=== PATIENT | male | born 1965 | race Caucasian/White ===

== ENCOUNTER → 2024-12-18 11:47 | Outpatient (REF) | payer OTHER, SELFPAY | LOC: RAD 11:47 | PROVIDERS: ATTENDING PHYSICIAN Physician Assistant Medical | DX: M54.42 Lumbago with sciatica, left side (principal) | CPT/HCPCS: 72110 ==

== ENCOUNTER → 2024-12-23 06:56 | Outpatient (REF) | payer OTHER, SELFPAY | LOC: MRI 3T 06:56 | PROVIDERS: ATTENDING PHYSICIAN Physician Assistant Medical; FAMILY PHYSICIAN Family Medicine | DX: G89.29 Other chronic pain (principal); M54.42 Lumbago with sciatica, left side | CPT/HCPCS: 72148 ==

== ENCOUNTER → 2025-01-01 13:44 | Outpatient (REF) | payer OTHER, SELFPAY | LOC: DHSLP 13:44 | PROVIDERS: ATTENDING PHYSICIAN Family Medicine | DX: G47.33 Obstructive sleep apnea (adult) (pediatric) (principal); R09.02 Hypoxemia | CPT/HCPCS: 95800 ==

== ENCOUNTER → 2025-01-18 14:09 | Outpatient (REF) | payer OTHER, SELFPAY | LOC: RAD 14:09 | PROVIDERS: ATTENDING PHYSICIAN Neurological Surgery; FAMILY PHYSICIAN Family Medicine | DX: M51.26 Other intervertebral disc displacement, lumbar region (principal) | CPT/HCPCS: 72110; 72131 ==